=== PATIENT | male | born 1970 | race African-American/Black ===

== ENCOUNTER 2018-05-18 14:47 | Emergency (ER) | payer OTHER ==
[~2018-05-18] VITALS: Ht 175.3 cm; Wt 97.0 kg
[2018-05-18] MEDS ORDERED: KETOROLAC 60MG/2ML VIAL IM STA (17:50)
[2018-05-18 19:08] LABS: CLARITY URINE CLEAR (CLEAR); COLOR URINE YELLOW (YELLOW); KETONES URINE NEGATIVE (NEGATIVE); LEUKOCYTE ESTERASE URINE TRACE (NEGATIVE); NITRITE URINE NEGATIVE (NEGATIVE); OCCULT BLOOD URINE NEGATIVE (NEGATIVE); PH URINE 8.5 (4.5-8.0); PROTEIN URINE NEGATIVE (NEGATIVE); SPECIFIC GRAVITY URINE 1.016 (1.005-1.030)
[2018-05-18 19:43] VITALS: BP 190/102
== END 2018-05-18 19:56 | disposition home or self-care (01) ==
LOC: ER 14:47
DX: M54.5 Low back pain (principal); M54.30 Sciatica, unspecified side; M47.816 Spondylosis without myelopathy or radiculopathy, lumbar region; E11.9 Type 2 diabetes mellitus without complications; I10 Essential (primary) hypertension; F17.200 Nicotine dependence, unspecified, uncomplicated
CPT/HCPCS: 72100; 81003; 96372; 99285; J1885

== ENCOUNTER 2024-09-02 10:56 | Inpatient (IN) | payer OTHER ==
[~2024-09-02] VITALS: Ht 175.3 cm; Wt 78.9 kg
[~2024-09-02 10:56] MED LIST: AMLO10TA80 PO; HYDR25TA MT; METF-1150 MT
[2024-09-02 11:52] LABS: BASOPHILS % 0.4 % (0.0-2.0); DIFFERENTIAL COMMENT 0; EOSINOPHILS % 0.1 % (0.0-5.0); MEAN CORPUSCULAR HEMOGLOBIN 31.7 pg (28.0-32.0); MEAN CORPUSCULAR HGB CONC 33.7 g/dL (31.0-37.0); MEAN PLATELET VOLUME 8.9 fl (7.4-10.4); MONOCYTES % 4.6 % (2.0-8.0); NEUTROPHILS % 80.9 % (40.0-76.0); PLATELET 123 x1000/uL (130-400); RED BLOOD CELL COUNT 1.99 mill/uL (4.7-6.1); RED CELL DISTRIBUTION WIDTH 15.5 % (11.6-14.6); WHITE BLOOD COUNT 8.9 x1000/uL (4.5-11.0)
[2024-09-02 11:55] LABS: CHLORIDE 96 mEq/L (98-107); POTASSIUM 3.1 mEq/L (3.5-5.1); SODIUM 130 mEq/L (136-145)
[2024-09-02 11:56] LABS: CARBON DIOXIDE 23 mEq/L (21-32)
[2024-09-02 11:57] LABS: HEMATOCRIT. 18.7 % (42.0-52.0); HEMOGLOBIN. 6.3 g/dL (14.0-18.0)
[2024-09-02] MEDS ORDERED: ONDANSETRON HCL 4MG/2ML INJ IV STA (11:59)
[2024-09-02] MEDS: SODIUM CHLORIDE 0.9% 1,000 ML IV ONE (12:00)
[2024-09-02 12:01] LABS: GLUCOSE 116 mg/dL (70-105)
[2024-09-02 12:02] LABS: UREA NITROGEN BLOOD 96 mg/dL (9-23)
[2024-09-02 12:03] LABS: ALANINE AMINOTRANSFERASE 70 IU/L (10-49); ALBUMIN 3.6 g/dL (3.2-4.8); ASPARTATE AMINOTRANSFERASE 45 IU/L (<34)
[2024-09-02 12:04] LABS: BILIRUBIN TOTAL 0.3 mg/dL (0.1-1.0); PROTEIN TOTAL 6.3 g/dL (6.0-8.3)
[2024-09-02 12:15] LABS: BILIRUBIN DIRECT < 0.1 mg/dL (<=3.0)
[2024-09-02 12:16] LABS: CLARITY URINE CLEAR (CLEAR); COLOR URINE YELLOW (YELLOW); GLUCOSE URINE TRACE (NEGATIVE); KETONES URINE NEGATIVE (NEGATIVE); LEUKOCYTE ESTERASE URINE NEGATIVE (NEGATIVE); NITRITE URINE NEGATIVE (NEGATIVE); OCCULT BLOOD URINE TRACE (NEGATIVE); PROTEIN URINE 2+ (NEGATIVE); UROBILINOGEN URINE 0.2 E.U./dL (0.2-1.0)
[2024-09-02 12:29] LABS: BACTERIA URINE RARE; RBC URINE NONE SEEN /hpf (0-2); SQUAMOUS EPITHELIAL CELL URINE NONE SEEN /lpf (RARE/1+); WBC URINE 0-2 /hpf (0-2); YEAST URINE NONE SEEN
[2024-09-02 12:35] LABS: PROTHROMBIN TIME 11.5 sec (9.6-11.0)
[2024-09-02] MEDS: HYDRALAZINE 20MG/ML VIAL IV ONE (14:21)
[2024-09-02] MEDS: ONDANSETRON HCL 4MG/2ML INJ IV NR (14:21)
[2024-09-02 18:20] VITALS: BP 191/141; PULSE 105; RESP 20; TEMP 37.00296; O2SAT 100
[2024-09-02] MEDS: HYDRALAZINE 20MG/ML VIAL IV PRN (18:26)
[2024-09-02 18:40] VITALS: BP 191/141; PULSE 103; RESP 20; TEMP 37.0296
[2024-09-02] MEDS ORDERED: IPRATROPIUM/ALBUTEROL 0.5-3(2.5)MG/3ML NEB NEB PRN (19:00)
[2024-09-02] MEDS ORDERED: DEXTROSE 50% WATER 50ML SYRINGE IV PRN (19:00)
[2024-09-02 20:00] VITALS: BP 180/100; PULSE 104; RESP 18; TEMP 36.33624; O2SAT 100
[2024-09-02] MEDS: BLOOD SUGAR DIAGNOSTIC STRIP TEST SCH (21:00)
[2024-09-02 22:00] VITALS: BP 188/106; PULSE 107; RESP 20; O2SAT 96
[2024-09-02] MEDS: CLONIDINE 0.1MG TABLET PO PRN (22:10)
[2024-09-02] MEDS: INSULIN LISPRO 100 UNITS/ML SUBCUT SCH (23:30)
[2024-09-03] VITALS (21 sets, daily range): BP systolic 120–187; BP diastolic 79–127; PULSE 71–106; RESP 12–30; TEMP 36.16956–37.39188; O2SAT 97–100
[2024-09-03] MEDS: ONDANSETRON HCL 4MG/2ML INJ IV PRN (00:55)
[2024-09-03 01:14] LABS: CREATINE KINASE MB FRACTION 2.4 ng/mL (0.5-3.6)
[2024-09-03 01:15] LABS: CREATINE KINASE 64 IU/L (46-171)
[2024-09-03 01:21] LABS: TROPONIN I HIGH SENSITIVITY 68 ng/L (3.0-53)
[2024-09-03] MEDS: ZOLPIDEM TARTRATE 5MG TABLET PO PRN (02:51)
[2024-09-03] MEDS: DIPHENHYDRAMINE 25MG CAPSULE PO NR (03:27)
[2024-09-03] MEDS: ACETAMINOPHEN 325MG TABLET PO NR (03:29)
[2024-09-03] MEDS: LABETALOL 5MG/ML 4ML INJ IV NR (03:56)
[2024-09-03] MEDS: LABETALOL 5MG/ML 4ML INJ IV PRN (04:48)
[2024-09-03 08:39] LABS: BASOPHILS % 0.7 % (0.0-2.0); EOSINOPHILS % 0.5 % (0.0-5.0); LYMPHOCYTES % 20.9 % (20.0-50.0); MEAN CORPUSCULAR HEMOGLOBIN 30.9 pg (28.0-32.0); MEAN CORPUSCULAR HGB CONC 33.6 g/dL (31.0-37.0); MEAN CORPUSCULAR VOLUME 91.9 fL (80.0-94.0); MONOCYTES % 4.6 % (2.0-8.0); NEUTROPHILS % 73.3 % (40.0-76.0); PLATELET 104 x1000/uL (130-400); RED BLOOD CELL COUNT 2.27 mill/uL (4.7-6.1); RED CELL DISTRIBUTION WIDTH 16.2 % (11.6-14.6); WHITE BLOOD COUNT 6.9 x1000/uL (4.5-11.0)
[2024-09-03] MEDS: PANTOPRAZOLE SODIUM 40 MG/VIAL IV SCH (08:39)
[2024-09-03] MEDS: NIFEDIPINE XL 60MG TAB PO SCH (08:43)
[2024-09-03 09:00] LABS: HEMATOCRIT. 20.8 % (42.0-52.0)
[2024-09-03 09:33] LABS: POTASSIUM 3.5 mEq/L (3.5-5.1)
[2024-09-03 09:35] LABS: CALCIUM 7.8 mg/dL (8.7-10.4)
[2024-09-03] MEDS: LABETALOL HCL 300MG TABLET PO SCH (09:36)
[2024-09-03 09:38] LABS: CREATINE KINASE MB FRACTION 2.1 ng/mL (0.5-3.6)
[2024-09-03 09:48] LABS: CREATININE 8.8 mg/dL (0.6-1.3)
[2024-09-03 10:28] LABS: PHOSPHORUS 4.1 mg/dL (2.5-4.9)
[2024-09-03 13:40] LABS: *AMPHETAMINES SCREEN URINE NEGATIVE (NEGATIVE); *BARBITURATES SCREEN URINE NEGATIVE (NEGATIVE); *BENZODIAZEPINES SCREEN URINE NEGATIVE (NEGATIVE); *COCAINE SCREEN URINE PRESUMPTIVE POSITIVE (NEGATIVE); CANNABINOID URINE SCREEN NEGATIVE (NEGATIVE); ECSTASY MDMA SCREEN URINE NEGATIVE (NEGATIVE); METHADONE URINE SCREEN NEGATIVE (NEGATIVE); OPIATES URINE SCREEN NEGATIVE (NEGATIVE); PHENCYCLIDINE URINE SCREEN NEGATIVE (NEGATIVE)
[2024-09-03] MEDS: HYDRALAZINE HCL 50MG TABLET PO SCH (14:09)
[2024-09-03] MEDS: EPOETIN ALFA 10000UNITS/ML VIAL SUBCUT NR (23:51)
[2024-09-04] VITALS (16 sets, daily range): BP systolic 100–190; BP diastolic 44–93; PULSE 73–88; RESP 16–24; TEMP 36.28068–36.6696; O2SAT 96–100
[2024-09-04 07:10] LABS: POTASSIUM 3.9 mEq/L (3.5-5.1)
[2024-09-04 07:12] LABS: CALCIUM 7.6 mg/dL (8.7-10.4)
[2024-09-04 07:26] LABS: CREATININE 9.1 mg/dL (0.6-1.3)
[2024-09-04 07:51] LABS: BASOPHILS % 0.7 % (0.0-2.0); DIFFERENTIAL COMMENT 0; EOSINOPHILS % 0.6 % (0.0-5.0); LYMPHOCYTES % 17.5 % (20.0-50.0); MEAN CORPUSCULAR HEMOGLOBIN 31.5 pg (28.0-32.0); MEAN CORPUSCULAR VOLUME 92.6 fL (80.0-94.0); MEAN PLATELET VOLUME 8.8 fl (7.4-10.4); MONOCYTES % 5.1 % (2.0-8.0); NEUTROPHILS % 76.1 % (40.0-76.0); PLATELET 103 x1000/uL (130-400); RED BLOOD CELL COUNT 2.16 mill/uL (4.7-6.1); RED CELL DISTRIBUTION WIDTH 16.3 % (11.6-14.6); WHITE BLOOD COUNT 6.4 x1000/uL (4.5-11.0)
[2024-09-04] MEDS: FUROSEMIDE 40MG/4ML VIAL IVP SCH (08:34)
[2024-09-04 09:08] LABS: HEMOGLOBIN. 6.8 g/dL (14.0-18.0)
[2024-09-04] MEDS ORDERED: DIPHENHYDRAMINE 25MG CAPSULE PO NR (11:45)
[2024-09-04] MEDS ORDERED: LORATADINE 10MG TABLET PO NR (11:45)
[2024-09-04] MEDS ORDERED: ACETAMINOPHEN 325MG TABLET PO NR (11:45)
[2024-09-04 21:22] LABS: HEMATOCRIT 27.9 % (42.0-52.0); HEMOGLOBIN 9.3 g/dL (14.0-18.0)
[2024-09-04 21:34] LABS: PROTHROMBIN TIME 11.4 sec (9.6-11.0)
[2024-09-05] VITALS (12 sets, daily range): BP systolic 111–169; BP diastolic 68–102; PULSE 79–88; RESP 15–25; TEMP 36.22512–37.00296; O2SAT 96–100
[2024-09-05] MEDS: ACETAMINOPHEN 325MG TABLET PO PRN (08:02)
[2024-09-05] MEDS: HYDROCODONE/ACETAMINOPHEN 5/325MG TABLET PO PRN (13:31)
[2024-09-05] MEDS ORDERED: NEOMYCIN-POLYMYXIN B-HYDROCORTISONE 1% OTIC SOLN 10ML EACH EAR SCH (19:00)
[2024-09-05] MEDS: NEOMYCIN-POLYMYXIN-HYDROCORTISONE 1% OTIC SUSP 10ML EACH EAR SCH (21:27)
[2024-09-06] VITALS: BP 150/90; PULSE 80; RESP 18; TEMP 36.3918; O2SAT 100
[2024-09-06 02:00] VITALS: O2SAT 99
[2024-09-06 04:00] VITALS: TEMP 36.33624; O2SAT 99
[2024-09-06 06:00] VITALS: BP 142/71; TEMP 36.3918; TEMP 36.39180; O2SAT 96
[2024-09-06 06:19] LABS: CALCIUM 8.6 mg/dL (8.7-10.4); POTASSIUM 4.6 mEq/L (3.5-5.1)
[2024-09-06 06:27] LABS: BASOPHILS % 0.6 % (0.0-2.0); EOSINOPHILS % 1.2 % (0.0-5.0); HEMATOCRIT. 26.3 % (42.0-52.0); HEMOGLOBIN. 8.7 g/dL (14.0-18.0); LYMPHOCYTES % 14.7 % (20.0-50.0); MEAN CORPUSCULAR HEMOGLOBIN 31.7 pg (28.0-32.0); MEAN CORPUSCULAR HGB CONC 33.2 g/dL (31.0-37.0); MEAN CORPUSCULAR VOLUME 95.2 fL (80.0-94.0); MONOCYTES % 6.3 % (2.0-8.0); NEUTROPHILS % 77.2 % (40.0-76.0); PLATELET 128 x1000/uL (130-400); RED BLOOD CELL COUNT 2.76 mill/uL (4.7-6.1); RED CELL DISTRIBUTION WIDTH 16.5 % (11.6-14.6); WHITE BLOOD COUNT 6.1 x1000/uL (4.5-11.0)
[2024-09-06 06:29] LABS: CREATININE 9.5 mg/dL (0.6-1.3)
[2024-09-06 11:13] VITALS: BP 129/78; PULSE 77; TEMP 97.1; O2SAT 96
[2024-09-06] MEDS ORDERED: NIFE-32 PO (12:11)
[2024-09-06] MEDS ORDERED: FURO-151 MT (12:11)
[2024-09-06] MEDS ORDERED: HYDR50TA39 PO (12:11)
[2024-09-06] MEDS ORDERED: CLON0.1T PO (12:11)
[2024-09-06] MEDS ORDERED: LABE300T36 PO (12:11)
== END 2024-09-06 14:45 | disposition home or self-care (01) | DRG 469 ==
LOC: ER 11:05 → 5EST 13:56 → EDBEDREQSVC 14:15
PROVIDERS: ADMIT Internal Medicine; ATTEND Internal Medicine
PROC: 30233N1 Transfusion of Nonautologous Red Blood Cells into Peripheral Vein, Percutaneous Approach (ICD-10-PCS; principal; 2024-09-02)
DX: N17.9 Acute kidney failure, unspecified (principal); I50.31 Acute diastolic (congestive) heart failure; D69.6 Thrombocytopenia, unspecified; K92.2 Gastrointestinal hemorrhage, unspecified; E87.1 Hypo-osmolality and hyponatremia; E11.22 Type 2 diabetes mellitus with diabetic chronic kidney disease; I13.2 Hypertensive heart and chronic kidney disease with heart failure and with stage 5 chronic kidney disease, or end stage renal disease; N18.5 Chronic kidney disease, stage 5; I16.1 Hypertensive emergency; E87.70 Fluid overload, unspecified; F14.10 Cocaine abuse, uncomplicated; E87.6 Hypokalemia; D64.9 Anemia, unspecified; Z79.899 Other long term (current) drug therapy; Z91.158 Patient's noncompliance with renal dialysis for other reason; Z91.148 Patient's other noncompliance with medication regimen for other reason
CPT/HCPCS: 36415; 80048; 80076; 80305; 81003; 82550; 82553; 82962; 83036; 84100; 84484; 85014; 85018; 85025; 85049; 85384; 86850; 86900; 86920; 93005; 93970; 99291; J0360; J1815; J1940; J2405; J2470; J3490; J7030; P9016; Q0163